=== PATIENT | male | born 2000 | race African-American/Black ===

== ENCOUNTER 2021-01-04 12:28 | Emergency (ER) | payer OTHER ==
[~2021-01-04] VITALS: Ht 167.6 cm; Wt 63.5 kg
[2021-01-04 12:37] VITALS: BP 116/67
[2021-01-04] MEDS ORDERED: CYCL5TAB PO (12:57)
[2021-01-04] MEDS ORDERED: KETOROLAC TROMETHAMINE INJ 30 MG/ML VIAL IM ONE (13:00)
[2021-01-04] MEDS ORDERED: CYCLOBENZAPRINE 10 MG TABLET PO ONE (13:00)
[2021-01-04] MEDS ORDERED: CYCLOBENZAPRINE 10 MG TABLET ONE (13:07)
[2021-01-04] MEDS ORDERED: KETOROLAC TROMETHAMINE INJ 30 MG/ML VIAL ONE (13:07)
--- NOTE | 2021-01-04 13:12 | NUR ---
Patient discharged to home in stable condition. Written and verbal after care instructions given. Patient verbalizes understanding of instruction. Pt ambulatory with a steady gait
== END 2021-01-04 13:13 | disposition home or self-care (01) ==
LOC: ER 12:36
DX: S13.4XXA Sprain of ligaments of cervical spine, initial encounter (principal); M54.6 Pain in thoracic spine; M54.5 Low back pain; V49.59XA Passenger injured in collision with other motor vehicles in traffic accident, initial encounter; Y93.89 Activity, other specified; Y92.413 State road as the place of occurrence of the external cause; Y99.8 Other external cause status
CPT/HCPCS: J1885